=== PATIENT | female | born 1985 | race Caucasian/White ===

== ENCOUNTER 2017-04-11 21:56 | Emergency (ER) | payer BC, OTHER ==
[~2017-04-11] VITALS: Ht 172.7 cm; Wt 114.0 kg
[~2017-04-11 21:56] MED LIST: CETI10 PO; CHOL50006 PO; NAPR250T57 PO; PREN0.01 PO
[2017-04-11 22:12] VITALS: BP 166/89; PULSE 122; RESP 18; TEMP 99.7; O2SAT 99
[2017-04-11] MEDS ORDERED: LEVO1TAB50 (22:33)
[2017-04-11] MEDS ORDERED: CIPR0.3S EACH EAR (22:33)
[2017-04-11] MEDS ORDERED: NAPR500 PO (22:38)
[2017-04-11] MEDS ORDERED: VITA1000 PO (22:38)
[2017-04-11 22:52] VITALS: BP 189/109; PULSE 122; RESP 18; O2SAT 97
[2017-04-11] MEDS ORDERED: KETOROLAC TROMETHAMINE 30 MG/ML (IVP) VIAL IV PUSH ONE (23:00)
[2017-04-11] MEDS ORDERED: ACETAMINOPHEN 325 MG TAB PO ONE (23:00)
[2017-04-11] MEDS ORDERED: CLINDAMYCIN INJ 900 MG in SODIUM CHLORIDE 0.9% INJ 100 ML IV ONE (23:00)
[2017-04-11 23:21] VITALS: BP 158/95; PULSE 114; RESP 18; O2SAT 97
[2017-04-11 23:22] LABS: AUTOMATED NEUTROPHIL # 8.2 TH/MM3 (1.8-7.7); BASOPHIL % 0.4 % (0.0-2.0); EOSINOPHIL # 0.3 TH/MM3 (0-0.4); EOSINOPHIL % 2.7 % (0.0-4.0); HEMATOCRIT 38.5 % (35.0-46.0); HEMO FLAGS DIFF FINAL; LYMPH % 19.3 % (9.0-44.0); LYMPHOCYTE # 2.3 TH/MM3 (1.0-4.8); MEAN CELL VOLUME 89.6 FL (80.0-100.0); MEAN CORPUSCULAR HEMOGLOBIN 31.2 PG (27.0-34.0); MEAN CORPUSCULAR HGB CONC 34.8 % (32.0-36.0); MONO % 8.4 % (0.0-8.0); NEUT % 69.2 % (16.0-70.0); PLATELET COUNT 277 TH/MM3 (150-450); RED BLOOD COUNT 4.29 MIL/MM3 (4.00-5.30); WHITE BLOOD COUNT 11.9 TH/MM3 (4.0-11.0)
[2017-04-11 23:30] LABS: POTASSIUM 3.8 MEQ/L (3.5-5.1)
[2017-04-11] MEDS ORDERED: IOHEXOL 350 MG/ML 10 ML VIAL (for RAD DIAG) IV ONE (23:30)
[2017-04-11 23:33] LABS: BICARBONATE 26.3 MEQ/L (21.0-32.0)
[2017-04-12 00:29] VITALS: BP 155/100; PULSE 108; RESP 18; O2SAT 98
--- NOTE | 2017-04-12 00:36 | RADRPT ---
EXAM DATE/TIME: 04/11/2017 23:47 [place] COMPARISON: No previous studies available for comparison. INDICATIONS : Right ear infection and pain since . Ear and neck pain. Question abscess IV CONTRAST: 75 cc Omnipaque 350 (iohexol) IV RADIATION DOSE: 16.07 CTDIvol (mGy) MEDICAL HISTORY : None SURGICAL HISTORY : Tonsillectomy. dental ENCOUNTER: Initial ACUITY: 3 days PAIN SCALE: 8/10 LOCATION: Right neck TECHNIQUE: Volumetric scanning of the neck was performed. Using automated exposure control and adjustment of mA and/or kV according to patient size, radiation dose was kept as low as reasonably achievable to obtain optimal diagnostic quality images. DICOM format image data is available electronically for r eview and comparison. FINDINGS: NASOPHARYNX: The nasopharyngeal airway has a normal configuration. No mucosal thickening or mass is seen. OROPHARYNX: The intrinsic muscles of the tongue are symmetric. The tonsillar pillars are intact. The prevertebr al soft tissues are not thickened. LARYNX: The supraglottic, glottic, and infraglottic structures are intact. PARAPHARYNGEAL: The parapharyngeal space is intact. SALIVARY GLANDS: The parotid and submandibular glands are intact. LYMPH NODES: There are some prominent lymph nodes in the right cervical chain measuring up to 1.5 cm in diameter. However, these all contain fatty megan and are almost certainly reactive. THYROID: 8 mm hypodensity in the right lobe of the thyroid is nonspecific but overtly benign. BONES: Unremarkable. SOFT TISSUE: There is some induration around the right external auditory canal with regional inflammatory changes. Findings are characteristic of an otitis externa. No abscess identified. CONCLUSION: 1. There is some induration along the external auditory canal on the right with adjacent inflammatory stranding and probable reactive borderline prominent lymph nodes in the right cervical chain. Findin gs are characteristic of an uncomplicated otitis externa. No abscess identified. 2. No suspicious mass lesions. Benign-appearing 8 mm hypodensity in the right lobe of the thyroid. Kaden Dao MD on April 12, 2017 at 0:28 Board Certified Radiologist. This report was verified electronically.
[2017-04-12] MEDS ORDERED: AUGM875T3 PO (00:46)
[2017-04-12] MEDS ORDERED: AMLO5 PO (00:48)
--- NOTE | 2017-04-12 00:49 | PD ---
HPI Chief Complaint: ENT Complaint Time Seen by Provider: 22:52 Travel History International Travel<30 days: No Contact w/Intl Traveler<30days: No Traveled to known affect area: No History of Present Illness HPI 31-year-old female presents to the emergency department for complaint of progressively worsening right ear pain with swelling. Patient also complains of right facial pain posterior radicular pain and right-sided submandibular pain and swelling. Patient states that her pain is worsened by opening or closing her mouth and with swallowing. Patient has had subjective fever without chills. Patient is not diabetic. Patient states she went to urgent care earlier today was diagnosed with an outer ear infection and given antibiotic eardrops. Patient was told the time that she did not need an ear wick but if her symptoms persisted she may need to come back to the emergency Department or urgent care to have an earache placed. Patient has had chronic issues with her right ear including tympanic membrane rupture in the remote past. There is been no bleeding from the ear. Patient also has history of chronic hypertension but has not been on medication for some time. Patient reports 5 years ago was evaluated with Holter monitor and echo and was placed on a beta maribell but discontinued this medication and was placed on other medications during her to control her blood pressure and stop as well. Patient denies other concerns or complaints. Patient rates her pain as 8 /10 intensity. Patient reports pain as not responsive to [id number] medications but did take a one-time leftover hydrocodone with some symptomatic relief. PFSH Past Medical History Narrative Medical Chronic tachycardic hypertension GERD gallbladder disease ovarian cyst excision tonsillectomy D&C; no tobacco; nursing notes reviewed Medical History: Denies Significant Hx Heart Rhythm Problems: Yes (CHRONIC TACHY) Diminished Hearing: No Gastrointestinal Disorders: Yes (GASTROENTERITIS/ULCER; LOW EF ON GALLBLADDER) Hypertension: Yes Immunizations Current: Yes Influenza Vaccination: Yes ?: Not Menopausal: No : 1 Para: 0 Dilation and Curettage (D&C): Yes (12/09/13) Past Surgical History Gynecologic Surgery: Yes (RT OVARIAN CYST REMOVAL 2004) Oral Surgery: Yes (4 WISDOM TOOTH EXTRACTION ) Tonsillectomy: Yes Social History Alcohol Use: Yes Tobacco Use: No Substance Use: No Allergies-Medications (Allergen,Severity, Reaction): Coded Allergies: morphine (Unverified Adverse Reaction, Intermediate, Nausea/Vomiting, 04/11) oxycodone (Unverified Adverse Reaction, Intermediate, Nausea/Vomiting, ) Reported Meds & Prescriptions Reported Meds & Active Scripts Active Norvasc (Amlodipine Besylate) 5 Mg Tab 5 Mg PO DAILY Augmentin (Amoxicillin-Clavulanate) 875-125 Mg Tab 1 Tab PO BID 7 Days Reported Vitamin D-1000 (Cholecalciferol) 1,000 Unit Tab 5,000 Units PO DAILY Naprosyn (Naproxen) 500 Mg Tab 250 Mg PO BID Xyzal (Levocetirizine Dihydrochloride) 5 Mg Tablet Ciprodex Otic Drops (Ciprofloxacin-Dexamethasone Otic Drops) 0.3-0.1% Susp 4 Drop EACH EAR BID Review of Systems Except as stated in HPI: all other systems reviewed are Neg General / Constitutional: No: Fever HENT: Positive: Congestion, Earache Cardiovascular: No: Chest Pain or Discomfort Respiratory: No: Shortness of Breath Gastrointestinal: No: Abdominal Pain Genitourinary: No: Flank Pain Musculoskeletal: No: Pain Skin: No Rash Neurologic: No: Weakness Psychiatric: Positive: Anxiety Hematologic/Lymphatic: No: Lymph Node Enlargement Physical Exam Narrative GENERAL: Well-developed well-nourished female in no respiratory distress in obvious discomfort SKIN: Warm and dry. HEAD: Normocephalic. EYES: No scleral icterus. No injection or drainage. ENT: Mucous membranes moist airway is patent dentition intact left external auditory canal/tympanic membrane no acute abnormality identified, right external auditory canal soft tissue swelling redness tenderness to palpation with tympanic membrane obscured by soft tissue swelling no bloody drainage noted tenderness to palpation of the tragus and in the postauricular area there is soft tissue swelling as well as soft tissue swelling and tenderness to palpation in the right submandibular area and sternocleidomastoid distribution with few shotty right-sided anterior and posterior cervical chain lymph nodes. NECK: Supple, trachea midline. No JVD or lymphadenopathy. No meningismus no nuchal rigidity CARDIOVASCULAR: Increased Regular rate and rhythm without murmurs, gallops, or rubs. RESPIRATORY: Breath sounds equal bilaterally. No accessory muscle use. GASTROINTESTINAL: Abdomen soft, non-tender, nondistended. MUSCULOSKELETAL: No cyanosis, or edema. BACK: Nontender without obvious deformity. No CVA tenderness. Data Data Last Documented VS Vital Signs Date Time Temp Pulse Resp B/P Pulse Ox O2 Delivery O2 Flow Rate FiO2 04/12/17 01:17 104 18 97 04/12/17 01:11 142/83 Room Air 04/11/17 22:12 99.7 Orders Basic Metabolic Panel (Bmp) (04/11/17 22:52) Complete Blood Count With Diff (04/11/17 22:52) Blood Culture (04/11/17 22:52) Iv Access Insert/Monitor (04/11/17 22:52) Acetaminophen (Tylenol) (04/11/17 23:00) Clindamycin Inj (Cleocin Inj) (04/11/17 23:00) Ketorolac Inj (Toradol Inj) (04/11/17 23:00) Ct Soft Tiss Neck W Iv Cont (04/11/17 ) Ed Urine Pregnancytest Poc (04/11/17 22:52) Lactic Acid (04/11/17 22:52) Iohexol 350 Inj (Omnipaque 350 Inj) (04/11/17 23:30) Labs Laboratory Tests Test 04/11/17 23:05 White Blood Count 11.9 TH/MM3 Red Blood Count 4.29 MIL/MM3 Hemoglobin 13.4 GM/DL Hematocrit 38.5 % Mean Corpuscular Volume 89.6 FL Mean Corpuscular Hemoglobin 31.2 PG Mean Corpuscular Hemoglobin 34.8 % Concent Red Cell Distribution Width 12.0 % Platelet Count 277 TH/MM3 Mean Platelet Volume 7.3 FL Neutrophils (%) (Auto) 69.2 % Lymphocytes (%) (Auto) 19.3 % Monocytes (%) (Auto) 8.4 % Eosinophils (%) (Auto) 2.7 % Basophils (%) (Auto) 0.4 % Neutrophils # (Auto) 8.2 TH/MM3 Lymphocytes # (Auto) 2.3 TH/MM3 Monocytes # (Auto) 1.0 TH/MM3 Eosinophils # (Auto) 0.3 TH/MM3 Basophils # (Auto) 0.0 TH/MM3 CBC Comment DIFF FINAL Differential Comment Sodium Level 140 MEQ/L Potassium Level 3.8 MEQ/L Chloride Level 106 MEQ/L Carbon Dioxide Level 26.3 MEQ/L Anion Gap 8 MEQ/L Blood Urea Nitrogen 9 MG/DL Creatinine 0.87 MG/DL Estimat Glomerular Filtration 75 ML/MIN Rate Random Glucose 104 MG/DL Lactic Acid Level 1.4 mmol/L Calcium Level 9.0 MG/DL MDM Medical Decision Making Medical Screen Exam Complete: Yes Emergency Medical Condition: Yes Medical Record Reviewed: Yes Interpretation(s) CT soft tissue neck w contrast: CONCLUSION: 1. There is some induration along the external auditory canal on the right with adjacent inflammatory stranding and probable reactive borderline prominent lymph nodes in the right cervical chain. Findings are characteristic of an uncomplicated otitis externa. No abscess identified. 2. No suspicious mass lesions. Benign-appearing 8 mm hypodensity in the right lobe of the thyroid. Kaden Dao MD on April 12, 2017 at 0:28 Board Certified Radiologist. This report was verified electronically. CBC & BMP Diagram 04/11/17 23:05 Vital Signs Date Time Temp Pulse Resp B/P Pulse Ox O2 Delivery O2 Flow Rate FiO2 04/12/17 00:29 108 18 155/100 98 Room Air 04/11/17 23:21 114 18 158/95 97 Room Air 04/11/17 22:52 122 18 189/109 97 Room Air 04/11/17 22:12 99.7 122 18 166/89 99 Differential Diagnosis Otitis externa, otitis media, perforated tympanic membrane, abscess, sialadenitis, mastoiditis Narrative Course IV access obtained specimens collected and sent for resulting patient administered clindamycin and Toradol Mild elevation of white count lactic acid in normal range not elevated CT soft tissue neck reveals no abscess and findings consistent with otitis externa Ear wick inserted into the right external auditory canal without difficulty or incident. Patient's own antibiotic drops were administered after ear wick inserted. patient is stable for outpatient management airway inserted into the right external auditory canal; she informed of lab results imaging results in stable for outpatient management. Diagnosis Primary Impression: Right otitis externa Qualified Code: H60.501 - Acute otitis externa of right ear, unspecified type Additional Impression: HTN (hypertension) Qualified Code: I10 - Essential hypertension Referrals: Ear / Nose / Throat Specialist as needed Primary Care Physician 2 days Patient Instructions: General Instructions Additional Instructions: Increase fluid hydration Take acetaminophen/Tylenol every 4 hours as needed for fever 100.4F or greater Take ibuprofen 800 mg as often as every 8 hours as needed for pain associated with inflammation Complete course of antibiotic as prescribed Continue antibiotic drops as prescribed 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
[2017-04-12 01:11] VITALS: BP 142/83; PULSE 104; RESP 18; O2SAT 98
== END 2017-04-12 01:17 | disposition home or self-care (01) ==
LOC: PHEFT 21:56 → PHED 04-12 01:17
DX: H60.501 Unspecified acute noninfective otitis externa, right ear (principal); I10 Essential (primary) hypertension; B95.7 Other staphylococcus as the cause of diseases classified elsewhere
CPT/HCPCS: 70491; 80048; 83605; 85025; 86403; 87040; 87077; 87186; 87205; 96365; 96375; 99285; J1885; Q9967

== ENCOUNTER 2017-04-14 18:41 | Emergency (ER) | payer OTHER ==
[~2017-04-14] VITALS: Ht 172.7 cm; Wt 112.3 kg
[~2017-04-14 18:41] MED LIST changes: +AMLO5 PO; +AUGM875T3 PO; -CETI10 PO; -CHOL50006 PO; +CIPR0.3S EACH EAR; +LEVO1TAB50; -NAPR250T57 PO; +NAPR500 PO; -PREN0.01 PO; +VITA1000 PO
[2017-04-14 18:47] VITALS: BP 181/92; PULSE 104; RESP 17; TEMP 99.1; O2SAT 99
--- NOTE | 2017-04-14 19:14 | PD ---
HPI Chief Complaint: Abnormal Results Time Seen by Provider: 19:08 Travel History International Travel<30 days: No Contact w/Intl Traveler<30days: No Traveled to known affect area: No History of Present Illness HPI The patient is a 31-year-old female that has had a right ear infection for 6 days. She was worked up for this with a CAT scan being done to rule out mastoiditis. The CAT scan showed only enlarged lymph nodes along the right anterior cervical chain. She had blood cultures done which grew out apparent skin contaminant, coagulase positive staph. She denies any fever at home. She does have right ear pain and pain along the anterior cervical chain of lymph nodes on the right side. She denies any dental pain or TMJ pain. She was put on Ciprodex otic drops as well as Augmentin. She has been on these medicines for 3 days. She apparently was told return to the emergency department because of the positive blood cultures. She has a history of ear infections on the right ear including tympanic membrane perforation multiple times. PFSH Past Medical History Heart Rhythm Problems: Yes (CHRONIC TACHY) Diminished Hearing: No Gastrointestinal Disorders: Yes (GASTROENTERITIS/ULCER; LOW EF ON GALLBLADDER) Hypertension: Yes Immunizations Current: Yes ?: Not Menopausal: No : 1 Para: 0 Dilation and Curettage (D&C): Yes (12/09/13) Past Surgical History Gynecologic Surgery: Yes (RT OVARIAN CYST REMOVAL 2004) Oral Surgery: Yes (4 WISDOM TOOTH EXTRACTION ) Tonsillectomy: Yes Social History Alcohol Use: Yes Tobacco Use: No Substance Use: No Allergies-Medications (Allergen,Severity, Reaction): Coded Allergies: morphine (Verified Adverse Reaction, Intermediate, Nausea/Vomiting, ) oxycodone (Verified Adverse Reaction, Intermediate, Nausea/Vomiting, ) Reported Meds & Prescriptions Reported Meds & Active Scripts Active Norvasc (Amlodipine Besylate) 5 Mg Tab 5 Mg PO DAILY Augmentin (Amoxicillin-Clavulanate) 875-125 Mg Tab 1 Tab PO BID 7 Days Reported Vitamin D-1000 (Cholecalciferol) 1,000 Unit Tab 5,000 Units PO DAILY Naprosyn (Naproxen) 500 Mg Tab 250 Mg PO BID Xyzal (Levocetirizine Dihydrochloride) 5 Mg Tablet Ciprodex Otic Drops (Ciprofloxacin-Dexamethasone Otic Drops) 0.3-0.1% Susp 4 Drop EACH EAR BID Review of Systems Except as stated in HPI: all other systems reviewed are Neg Physical Exam Narrative GENERAL: Well-nourished, well-developed patient in slight apparent distress with her right ear discomfort. Her vital signs show pulse of 104 and blood pressure 181/92 but otherwise normal. SKIN: Focused skin assessment warm/dry. HEAD: Normocephalic. EYES: No scleral icterus. No injection or drainage. NECK: Supple, trachea midline. No JVD. There is tenderness as well as enlargement of the right lymph nodes along the anterior cervical chain draining the ear area.. CARDIOVASCULAR: Regular rate and rhythm without murmurs, gallops, or rubs. RESPIRATORY: Breath sounds equal bilaterally. No accessory muscle use. GASTROINTESTINAL: Abdomen soft, non-tender, nondistended. MUSCULOSKELETAL: No cyanosis, or edema. BACK: Nontender without obvious deformity. No CVA tenderness. ENT: The right tympanic membrane cannot be seen due to wax totally occluding the canal. This here will be irrigated. DENTAL: No loose or chipped teeth. No malocclusion. There is no dental tenderness present, no abscess present from the teeth. Data Data Last Documented VS Vital Signs Date Time Temp Pulse Resp B/P (MAP) Pulse Ox O2 Delivery O2 Flow Rate FiO2 04/14/17 19:15 90 18 165/109 (127) 98 Room Air 04/14/17 18:47 99.1 Orders Orders Eye Irrigation (04/14/17 19:08) MDM Medical Decision Making Medical Screen Exam Complete: Yes Emergency Medical Condition: Yes Medical Record Reviewed: Yes Differential Diagnosis Otitis externa, otitis media, dental pain, TMJ pain, mastoiditis-highly unlikely , lymphadenitis cervical lymph nodes Narrative Course The right ear has had wax cleaned out so that I can see the canal, I cannot see the eardrum yet. The patient now has a pain of 9/10 in the ear canal. The ear canal is beefy red and exquisitely tender. At this point I will give the patient Cortisporin otic solution. Diagnosis Primary Impression: Right otitis externa Additional Instructions: As we discussed, apply the eardrops twice daily and you may need to follow-up with an director of finance if not better. Med/Other Pt SpecificInfo: No Change to Meds Disposition: 01 DISCHARGE HOME Condition: Stable Dameon Singh MD Apr 14, 2017 19:14
[2017-04-14 19:15] VITALS: BP 165/109; PULSE 90; RESP 18; O2SAT 98
[2017-04-14] MEDS ORDERED: NEOMYCIN/POLYMYXIN/HYDROCORT OTIC SOLN 10 ML BTL EACH EAR ONE (20:00)
[2017-04-14] MEDS ORDERED: HYDR-3533 PO (20:02)
[2017-04-14 20:51] VITALS: BP 161/104
== END 2017-04-14 20:54 | disposition home or self-care (01) ==
LOC: PHED 18:41
DX: H60.91 Unspecified otitis externa, right ear (principal)
CPT/HCPCS: 99283

== ENCOUNTER 2017-04-16 15:18 | Emergency (ER) | payer OTHER ==
[~2017-04-16 15:18] MED LIST changes: +HYDR-3533 PO
--- NOTE | 2017-04-16 15:33 | PD ---
Physical Exam Time Seen by Provider: 15:29 Narrative 31yo F called by Reid today to come back in to ER for positive blood cultures that needed follow-up. Is being treated for otitis externa and taking antibx. Patient seen in triage. VS reviewed. Awaiting bed placement. MDM Supervised Visit with KARINA: Alma Rosa Fortune Apr 16, 2017 15:33
--- NOTE | 2017-04-16 17:00 | PD ---
HPI Chief Complaint: Medical Clearance Time Seen by Provider: 16:49 Travel History International Travel<30 days: No Contact w/Intl Traveler<30days: No Traveled to known affect area: No History of Present Illness HPI 31-year-old female presents to the ED for evaluation of abnormal lab results. Patient was seen on 04/11, diagnosed with right otitis externa. At that time blood cultures were drawn. She was administered IV antibiotics, prescribed by mouth. Cultures came back positive for staph epidermidis and the patient was seen at [facility] on 04/14. At that time she underwent debridement and was placed on otic antibiotics drops. Patient presents today after receiving a second call for positive blood cultures. On presentation she endorses compliance with antibiotics and improvement of her symptoms. No fevers for the last few days. She has a few days of antibiotics remaining. PFSH Past Medical History Heart Rhythm Problems: Yes (CHRONIC TACHY) Diminished Hearing: No Gastrointestinal Disorders: Yes (GASTROENTERITIS/ULCER; LOW EF ON GALLBLADDER) Hypertension: Yes Immunizations Current: Yes Menopausal: No : 1 Para: 0 Dilation and Curettage (D&C): Yes (12/09/13) Tubal Ligation: Yes Past Surgical History Gynecologic Surgery: Yes (RT OVARIAN CYST REMOVAL 2004) Oral Surgery: Yes (4 WISDOM TOOTH EXTRACTION ) Tonsillectomy: Yes Social History Alcohol Use: Yes (Social) Tobacco Use: No Substance Use: No Allergies-Medications (Allergen,Severity, Reaction): Coded Allergies: morphine (Verified Adverse Reaction, Intermediate, Nausea/Vomiting, ) oxycodone (Verified Adverse Reaction, Intermediate, Nausea/Vomiting, ) Reported Meds & Prescriptions Reported Meds & Active Scripts Active Lortab (Hydrocodone-Acetaminophen) 5-325 Mg Tab 1 Tab PO Q4H PRN Norvasc (Amlodipine Besylate) 5 Mg Tab 5 Mg PO DAILY Augmentin (Amoxicillin-Clavulanate) 875-125 Mg Tab 1 Tab PO BID 7 Days Reported Vitamin D-1000 (Cholecalciferol) 1,000 Unit Tab 5,000 Units PO DAILY Naprosyn (Naproxen) 500 Mg Tab 250 Mg PO BID Xyzal (Levocetirizine Dihydrochloride) 5 Mg Tablet Ciprodex Otic Drops (Ciprofloxacin-Dexamethasone Otic Drops) 0.3-0.1% Susp 4 Drop EACH EAR BID Review of Systems Except as stated in HPI: all other systems reviewed are Neg Physical Exam Narrative GENERAL: Well-nourished, well-developed white female in no acute distress. SKIN: Warm and dry. HEAD: Normocephalic. Atraumatic. EYES: No scleral icterus. No injection or drainage. PERRLA. EOMI. ENT: Right external canal is erythematous and edematous with small amount of exudate. Cannot clearly evaluate the tympanic membrane. Pearly pappas tympanic membranes bilaterally. Nasal mucosa is moist. Oropharynx without erythema, edema or exudate. Uvula midline. Air way patent. NECK: Supple, trachea midline. Mild right-sided anterior cervical chain lymphadenopathy. CARDIOVASCULAR: Regular rate and rhythm without murmurs, gallops, or rubs. 2+ DP and radial pulses bilaterally. RESPIRATORY: Breath sounds clear and equal bilaterally. No accessory muscle use. GASTROINTESTINAL: Abdomen soft, non-tender, nondistended. + Bowel sounds MUSCULOSKELETAL: No cyanosis, or edema. Ambulatory with a normal gait. BACK: Nontender without obvious deformity. No CVA tenderness. MDM Medical Decision Making Medical Screen Exam Complete: Yes Emergency Medical Condition: Yes Differential Diagnosis Otitis externa versus otitis media versus positive blood cultures versus other Narrative Course 31-year-old female presents to the ED for evaluation of abnormal lab results. Patient was seen on 04/11, diagnosed with right otitis externa. At that time blood cultures were drawn. She was administered IV antibiotics, prescribed by mouth. Cultures came back positive for staph epidermidis and the patient was seen at [facility] on 04/14. At that time she underwent debridement and was placed on otic antibiotics drops. Patient presents today after receiving a second call for positive blood cultures. On presentation she endorses compliance with antibiotics and improvement of her symptoms. No fevers for the last few days. She has a few days of antibiotics remaining. Patient is well-appearing on exam. There is mild anterior cervical chain lymphadenopathy on the right and the external canal is erythematous and edematous with waxy exudates. Unable to clearly visualize the tympanic membrane. I discussed the blood culture results at length with the patient. With the patient's improvement I don't think that further evaluation is needed. She has seen her primary care provider and has scheduled follow-up with an ENT. She requests a note so that she may return to work tomorrow. She is given strict instructions to return should her symptoms worsen or ENT follow-up be unavailable. She is agreeable to the care plan. She is stable and discharged home. Diagnosis Primary Impression: Right otitis externa Qualified Codes: H60.91 - Unspecified otitis externa, right ear Referrals: Ear / Nose / Throat Specialist Departure Forms: Tests/Procedures, Work Release Enter return to work date: Apr 17, 2017 Special Instructions: No restrictions. Additional Instructions: Rest, hydrate. Continue with antibiotics as previously prescribed. Continue with anti-inflammatory use daily. Follow-up with primary care or ENT provider as discussed. Return to the ED for worsening symptoms or any urgent or emergent medical condition. Disposition: DISCHARGE HOME Condition: Stable Yoko Garcia Apr 16, 2017 17:00
== END 2017-04-16 17:55 | disposition home or self-care (01) ==
LOC: NEPD 15:18
DX: H60.91 Unspecified otitis externa, right ear (principal); R59.1 Generalized enlarged lymph nodes; I10 Essential (primary) hypertension; Z88.5 Allergy status to narcotic agent; Z79.899 Other long term (current) drug therapy
CPT/HCPCS: 99281

== ENCOUNTER 2017-10-20 12:50 | Emergency (ER) | payer OTHER ==
[~2017-10-20] VITALS: Ht 172.7 cm; Wt 115.9 kg
[~2017-10-20 12:50] MED LIST changes: -LEVO1TAB50; +LEVO5TAB8
[2017-10-20 12:56] VITALS: BP 207/102; PULSE 110; RESP 16; TEMP 98.3; O2SAT 98
[2017-10-20] MEDS ORDERED: SODIUM CHLOR 0.9% 1000 ML INJ 1,000 ML IV ONE (12:59)
[2017-10-20] MEDS ORDERED: SODIUM CHLORIDE 0.9% FLUSH 10 ML FLUSH IVF PRN (13:00)
[2017-10-20] MEDS ORDERED: PROCHLORPERAZINE INJ 10 MG/2 ML VIAL IVP ONE (13:00)
[2017-10-20] MEDS ORDERED: diphenhydrAMINE HCL 50 MG/ML VIAL IVP ONE (13:00)
[2017-10-20 13:05] VITALS: O2SAT 98
[2017-10-20 13:29] LABS: AUTOMATED NEUTROPHIL # 6.9 TH/MM3 (1.8-7.7); BASOPHIL % 0.4 % (0.0-2.0); EOSINOPHIL # 0.4 TH/MM3 (0-0.4); EOSINOPHIL % 3.9 % (0.0-4.0); HEMATOCRIT 43.3 % (35.0-46.0); HEMOGLOBIN 14.5 GM/DL (11.6-15.3); LYMPH % 29.6 % (9.0-44.0); LYMPHOCYTE # 3.3 TH/MM3 (1.0-4.8); MEAN CORPUSCULAR HEMOGLOBIN 30.5 PG (27.0-34.0); MEAN CORPUSCULAR HGB CONC 33.5 % (32.0-36.0); MEAN PLATELET VOLUME 7.5 FL (7.0-11.0); MONO % 5.2 % (0.0-8.0); MONOCYTE # 0.6 TH/MM3 (0-0.9); NEUT % 60.9 % (16.0-70.0); PLATELET COUNT 366 TH/MM3 (150-450); RED BLOOD COUNT 4.76 MIL/MM3 (4.00-5.30); RED CELL DISTRIBUTION WIDTH 11.9 % (11.6-17.2); WHITE BLOOD COUNT 11.2 TH/MM3 (4.0-11.0)
--- NOTE | 2017-10-20 13:32 | PD ---
HPI Chief Complaint: Numbness/Tingling Time Seen by Provider: 12:58 Travel History International Travel<30 days: No Contact w/Intl Traveler<30days: No Traveled to known affect area: No History of Present Illness HPI 32-year-old female states she has a headache to the top of her head with associated left face tingling. She denies any thunderclap onset. She denies any associated tingling elsewhere, weakness, speech changes or other concurrent complaints. Quality is throbbing. She states she tried an aspirin without relief. She states she has history of migraines but this feels a little bit different as her headache is usually associated around her eye. She states she has been having neck issues and is due for an epidural injection with her pain management doctor. She denies any IV drug history. Severity is moderate. She denies specific modifying factors. PFSH Past Medical History Heart Rhythm Problems: Yes (CHRONIC TACHY) Diminished Hearing: No Gastrointestinal Disorders: Yes (GASTROENTERITIS/ULCER; LOW EF ON GALLBLADDER) Hypertension: Yes Immunizations Current: Yes ?: Not LMP: ablation Menopausal: No : 1 Para: 0 Dilation and Curettage (D&C): Yes (12/09/13) Tubal Ligation: Yes Past Surgical History Gynecologic Surgery: Yes (RT OVARIAN CYST REMOVAL 2004) Oral Surgery: Yes (4 WISDOM TOOTH EXTRACTION ) Tonsillectomy: Yes Social History Alcohol Use: Yes (Social) Tobacco Use: No Substance Use: No Allergies-Medications (Allergen,Severity, Reaction): Coded Allergies: amoxicillin (Verified Allergy, Severe, hives, 10/20/17) clavulanic acid (Verified Allergy, Severe, hives, 10/20/17) morphine (Verified Adverse Reaction, Intermediate, Nausea/Vomiting, ) oxycodone (Verified Adverse Reaction, Intermediate, Nausea/Vomiting, ) Reported Meds & Prescriptions Reported Meds & Active Scripts Active Norvasc (Amlodipine Besylate) 5 Mg Tab 5 Mg PO DAILY Reported Grape Seed (Grape Seed Extract) 60 Mg Capsule Aspirin 81 Mg Chew 81 Mg CHEW DAILY Vitamin C (Ascorbic Acid) 250 Mg Chew 1,000 Mg CHEW DAILY Review of Systems Except as stated in HPI: all other systems reviewed are Neg Physical Exam Narrative GENERAL: 32 y/o female in no apparent distress SKIN: Focused skin assessment warm/dry. HEAD: Atraumatic. Normocephalic. EYES: Pupils equal and round. No scleral icterus. No injection or drainage. ENT: No nasal bleeding or discharge. Mucous membranes pink and moist. NECK: Trachea midline. No JVD. No meningeal signs CARDIOVASCULAR: Regular rate and rhythm. Respiratory: no increased effort GASTROINTESTINAL: Abdomen soft, non-tender, nondistended. MUSCULOSKELETAL: No obvious deformities. No clubbing. No cyanosis. No edema. NEUROLOGICAL: Awake and alert. No obvious cranial nerve deficits. Motor grossly within normal limits. Normal speech. 5 out of 5 in all 4 extremities, equal grasp bilaterally PSYCHIATRIC: Appropriate mood and affect; insight and judgment normal. Data Data Last Documented VS Vital Signs Date Time Temp Pulse Resp B/P (MAP) Pulse Ox O2 Delivery O2 Flow Rate FiO2 10/20/17 15:32 10/20/17 15:31 92 20 98 Room Air 10/20/17 12:56 98.3 Orders Orders Complete Blood Count With Diff (10/20/17 12:59) Basic Metabolic Panel (Bmp) (10/20/17 12:59) Ct Brain W/O Iv Contrast(Rout) (10/20/17 12:59) Ecg Monitoring (10/20/17 12:59) Iv Access Insert/Monitor (10/20/17 12:59) Oximetry (10/20/17 12:59) Sodium Chloride 0.9% Flush (Ns Flush) (10/20/17 13:00) Prochlorperazine Inj (Compazine Inj) (10/20/17 13:00) Diphenhydramine Inj (Benadryl Inj) (10/20/17 13:00) Sodium Chlor 0.9% 1000 Ml Inj (Ns 1000 M (10/20/17 12:59) Ed Urine Pregnancytest Poc (10/20/17 12:59) Ed Discharge Order (10/20/17 15:05) Vital Signs (10/20/17 15:19) Labs Laboratory Tests Test 10/20/17 13:10 White Blood Count 11.2 TH/MM3 Red Blood Count 4.76 MIL/MM3 Hemoglobin 14.5 GM/DL Hematocrit 43.3 % Mean Corpuscular Volume 91.0 FL Mean Corpuscular Hemoglobin 30.5 PG Mean Corpuscular Hemoglobin Concent 33.5 % Red Cell Distribution Width 11.9 % Platelet Count 366 TH/MM3 Mean Platelet Volume 7.5 FL Neutrophils (%) (Auto) 60.9 % Lymphocytes (%) (Auto) 29.6 % Monocytes (%) (Auto) 5.2 % Eosinophils (%) (Auto) 3.9 % Basophils (%) (Auto) 0.4 % Neutrophils # (Auto) 6.9 TH/MM3 Lymphocytes # (Auto) 3.3 TH/MM3 Monocytes # (Auto) 0.6 TH/MM3 Eosinophils # (Auto) 0.4 TH/MM3 Basophils # (Auto) 0.0 TH/MM3 CBC Comment DIFF FINAL Differential Comment Blood Urea Nitrogen 9 MG/DL Creatinine 0.84 MG/DL Random Glucose 88 MG/DL Calcium Level 9.2 MG/DL Sodium Level 136 MEQ/L Potassium Level 3.6 MEQ/L Chloride Level 102 MEQ/L Carbon Dioxide Level 25.0 MEQ/L Anion Gap 9 MEQ/L Estimat Glomerular Filtration Rate 78 ML/MIN MDM Medical Decision Making Medical Screen Exam Complete: Yes Emergency Medical Condition: Yes Medical Record Reviewed: Yes (pmh confirmed) Interpretation(s) CBC & BMP Diagram 10/20/17 13:10 Calcium Level 9.2 Last [address] 10/20/17 1259 Signed Impressions: Service Date/Time: Friday, October 20, 2017 14:22 - CONCLUSION: No acute intracranial disease. Alexander Smith MD Differential Diagnosis Migraine, cluster, tension, intracranial Narrative Course We will check blood work, test, CT brain and dose with IV fluids, Compazine, Benadryl and reevaluate ed workup no acute, Patient denies any new complaints and states that they are feeling better. Patient happy with care, all questions answered. Patient knows that follow up is incumbent on them and to return to the emergency room immediately if new or worsening symptoms develop. Patient given strict return precautions, vitals reviewed and are normal, agrees to further workup as an outpatient. Diagnosis Primary Impression: Cephalalgia Qualified Codes: R51 - Headache Additional Impression: Left facial numbness Patient Instructions: General Instructions Additional Instructions: return as needed, follow with primary, alternate tylenol and motrin Med/Other Pt SpecificInfo: No Change to Meds Disposition: 01 DISCHARGE HOME Condition: Stable Tammi Santiago MD Oct 20, 2017 13:32
[2017-10-20 13:38] LABS: CALCIUM 9.2 MG/DL (8.5-10.1)
[2017-10-20 13:42] LABS: CREATININE 0.84 MG/DL (0.50-1.00)
[2017-10-20] MEDS ORDERED: [UNRECOGNIZED DRUG - CODE] (13:50)
[2017-10-20] MEDS ORDERED: VITA250C3 CHEW (13:50)
[2017-10-20] MEDS ORDERED: ASPI-516 CHEW (13:50)
--- NOTE | 2017-10-20 14:50 | RADRPT ---
EXAM DATE/TIME: 10/20/2017 14:22 [facility] COMPARISON: No previous studies available for comparison. INDICATIONS : Cephalgia. Left facial tingling. RADIATION DOSE: 57.35 CTDIvol (mGy) MEDICAL HISTORY : Hypertension. SURGICAL HISTORY : Tubal ligation. ENCOUNTER: Initial ACUITY: 1 day PAIN SCALE: 7/10 LOCATION: cranial TECHNIQUE: Multiple contiguous axial images were obtained of the head. Using automated exposure control and adj ustment of the mA and/or kV according to patient size, radiation dose was kept as low as reasonably a chievable to obtain optimal diagnostic quality images. DICOM format image data is available electro nically for review and comparison. FINDINGS: CEREBRUM: The ventricles are normal for age. No evidence of midline shift, mass lesion, hemorrhage or acute in farction. No extra-axial fluid collections are seen. POSTERIOR FOSSA: The cerebellum and brainstem are intact. The 4th ventricle is midline. The cerebellopontine angle i s unremarkable. EXTRACRANIAL: The visualized portion of the orbits is intact. SKULL: The calvaria is intact. No evidence of skull fracture. CONCLUSION: No acute intracranial disease. Alexander Smith MD on October 20, 2017 at 14:48 Board Certified Radiologist. This report was verified electronically.
[2017-10-20 15:31] VITALS: BP 143/83; PULSE 92; RESP 20; O2SAT 98
== END 2017-10-20 15:45 | disposition home or self-care (01) ==
LOC: PHED 12:50
DX: R51 Headache (principal); R20.0 Anesthesia of skin; I10 Essential (primary) hypertension; R00.0 Tachycardia, unspecified; Z79.82 Long term (current) use of aspirin
CPT/HCPCS: 70450; 80048; 84703; 85025; 96361; 96374; 96375; 99284; J0780; J1200; J7030